=== PATIENT | female | born 1930 | race Caucasian/White ===

== ENCOUNTER 2019-03-04 22:29 | Observation (INO) | payer MEDICARE, OTHER ==
[2019-03-04 22:56] LABS: ADD MAN DIFF? NO
[2019-03-04 22:57] LABS: BASOPHILS % 0.3 % (0.0-2.0); EOSINOPHILS % 0.3 % (0.0-7.0); HEMATOCRIT 36.5 % (37.0-47.0); HEMOGLOBIN 11.7 g/dl (12.0-16.0); LYMPHOCYTES % 10.1 % (15.0-51.0); MEAN CORPUSCULAR HEMOGLOBIN 28.4 pg (29.0-33.0); MEAN CORPUSCULAR HGB CONC 32.1 g/dl (32.0-37.0); MEAN CORPUSCULAR VOLUME 88.6 fl (82.0-101.0); MEAN PLATELET VOLUME 9.8 fl (7.4-10.4); MONOCYTE # 0.4 10^3/ul (0.3-0.9); MONOCYTES % 3.7 % (0.0-11.0); NEUTROPHIL # 8.2 10^3/ul (1.6-7.5); NEUTROPHILS % 85.1 % (39.0-77.0); PLATELET COUNT 295 10^3/UL (140-415); RED BLOOD COUNT 4.12 10^6/ul (4.20-5.40); RED CELL DISTRIBUTION WIDTH 13.6 % (11.5-14.5)
[2019-03-04 22:57] LABS: WHITE BLOOD COUNT 9.7 10^3/ul (4.8-10.8)
[2019-03-04] MEDS: ONDANSETRON 4 MG INJ IV (23:23)
[2019-03-04 23:29] LABS: ALANINE AMINOTRANSFERASE 21 IU/L (13-69); ALBUMIN 4.7 g/dl (3.3-4.9); ALBUMIN/GLOBULIN RATIO 1.38; ALKALINE PHOSPHATASE 75 IU/L (42-121); ANION GAP 10 (5-13); ASPARTATE AMINO TRANSFERASE 32 IU/L (15-46); BILIRUBIN,INDIRECT 0.2 mg/dl (0-1.1); BILIRUBIN,TOTAL 0.2 mg/dl (0.2-1.3); BLOOD UREA NITROGEN 26 mg/dl (7-20); CALCIUM 9.6 mg/dl (8.4-10.2); CARBON DIOXIDE 29 mmol/L (21-31); CHLORIDE 101 mmol/L (97-110); GLUCOSE 73 mg/dl (70-220); LIPASE 153 U/L (23-300); POTASSIUM 3.6 mmol/L (3.5-5.1); SODIUM 140 mmol/L (135-144); TOTAL PROTEIN 8.1 g/dl (6.1-8.1)
[2019-03-04 23:41] LABS: TROPONIN-I < 0.012 ng/ml (0.000-0.120)
[2019-03-04 23:46] LABS: ADD UMIC YES; UR ASCORBIC ACID NEGATIVE (NEGATIVE); UR BILIRUBIN (Dip) NEGATIVE (NEGATIVE); UR BLOOD (Dip) NEGATIVE (NEGATIVE); UR CLARITY CLEAR (CLEAR); UR COLOR COLORLESS (YELLOW); UR GLUCOSE (Dip) NEGATIVE (NEGATIVE); UR KETONES (Dip) NEGATIVE (NEGATIVE); UR LEUKOCYTE ESTERASE (Dip) NEGATIVE Leu/ul (NEGATIVE); UR NITRITE (Dip) NEGATIVE (NEGATIVE); UR RBC 1 /HPF (0-5); UR SPECIFIC GRAVITY (Dip) 1.006 (1.003-1.030); UR TOTAL PROTEIN (Dip) 1+ mg/dl (NEGATIVE); UR UROBILINOGEN (Dip) NEGATIVE (NEGATIVE); UR WBC 1 /HPF (0-5)
[2019-03-04] MEDS: morphine 4 MG/ML VIAL IV (23:58)
[2019-03-04] MEDS: hydrALAzine 20 MG INJ IV (23:58)
[2019-03-05] MEDS ORDERED: LORAZEPAM 2 MG INJ (00:56)
[2019-03-05] MEDS: LORAZEPAM 2 MG INJ IV (01:00)
[2019-03-05] MEDS: ONDANSETRON 4 MG INJ IV (01:05)
[2019-03-05] MEDS ORDERED: NACL 0.9% 3 ML SYG IV (06:30)
[2019-03-05] MEDS ORDERED: ONDANSETRON 4 MG INJ IV (06:30)
[2019-03-05] MEDS ORDERED: ACETAMINOPHEN 325 MG TAB PO (06:30)
[2019-03-05] MEDS ORDERED: ALBUTEROL/IPRATROPIUM (NEB) 3 ML AMP HHN (06:30)
[2019-03-05] MEDS: SOD CHLORIDE 0.9% 1,000 ML IV (08:30)
[2019-03-05] MEDS: LEVOTHYROXINE 100 MCG TAB PO (08:30)
[2019-03-05] MEDS: PANTOPRAZOLE (EC) 40 MG TAB PO (08:30)
[2019-03-05] MEDS ORDERED: GLUCOSE GEL 15 GRAM TUBE PO ×2 (09:00)
[2019-03-05] MEDS ORDERED: GLUCOSE GEL 15 GRAM TUBE BUCCAL (09:00)
[2019-03-05] MEDS ORDERED: GLUCAGON 1 MG INJ IM (09:00)
[2019-03-05] MEDS ORDERED: DEXTROSE 50% 50 ML SYRINGE IV ×2 (09:00)
[2019-03-05] MEDS: INSULIN ASPART [NOVOLOG] 3 ML PEN SC ×3 (11:37→20:54)
[2019-03-05] MEDS: LISINOPRIL 10 MG TAB PO (16:10)
[2019-03-05] MEDS: POTASSIUM CHLORIDE 10 MEQ in SOD CHLORIDE 0.45% 1,000 ML IV (16:10)
[2019-03-05] MEDS: ACETAMINOPHEN 325 MG TAB PO (17:13)
[2019-03-05] MEDS: metFORMIN 500 MG TAB PO (17:15)
[2019-03-05] MEDS: INSULIN GLARGINE [LANTus] (100 UNITS/ML) SYG SC (21:00)
[2019-03-06] MEDS: ACCU-CHEK XX (02:44)
[2019-03-06] MEDS: LEVOTHYROXINE 100 MCG TAB PO (06:12)
[2019-03-06] MEDS: PANTOPRAZOLE (EC) 40 MG TAB PO (06:12)
[2019-03-06] MEDS: POTASSIUM CHLORIDE 10 MEQ in SOD CHLORIDE 0.45% 1,000 ML IV ×2 (06:12→18:48)
[2019-03-06] MEDS: ACETAMINOPHEN 325 MG TAB PO (06:21)
[2019-03-06] MEDS: INSULIN ASPART [NOVOLOG] 3 ML PEN SC ×4 (08:02→21:00)
[2019-03-06] MEDS: metFORMIN 500 MG TAB PO ×2 (08:06→17:41)
[2019-03-06] MEDS: LISINOPRIL 10 MG TAB PO (08:06)
[2019-03-06] MEDS: INSULIN GLARGINE [LANTus] (100 UNITS/ML) SYG SC ×2 (08:14→21:23)
[2019-03-06 08:21] LABS: ADD MAN DIFF? NO
[2019-03-06 08:30] LABS: BASOPHILS % 0.5 % (0.0-2.0); EOSINOPHILS # 0.2 10^3/ul (0.0-0.5); EOSINOPHILS % 2.1 % (0.0-7.0); HEMATOCRIT 33.4 % (37.0-47.0); HEMOGLOBIN 10.7 g/dl (12.0-16.0); LYMPHOCYTES % 25.9 % (15.0-51.0); MEAN CORPUSCULAR VOLUME 90.5 fl (82.0-101.0); MEAN PLATELET VOLUME 10.2 fl (7.4-10.4); MONOCYTE # 0.6 10^3/ul (0.3-0.9); MONOCYTES % 7.7 % (0.0-11.0); NEUTROPHIL # 4.9 10^3/ul (1.6-7.5); NEUTROPHILS % 63.3 % (39.0-77.0); PLATELET COUNT 313 10^3/UL (140-415); RED BLOOD COUNT 3.69 10^6/ul (4.20-5.40)
[2019-03-06 08:30] LABS: WHITE BLOOD COUNT 7.8 10^3/ul (4.8-10.8)
[2019-03-06 08:38] LABS: HEMOGLOBIN A1C 7.7 % (0-5.9)
[2019-03-06 08:55] LABS: ALANINE AMINOTRANSFERASE 13 IU/L (13-69); ALBUMIN 3.6 g/dl (3.3-4.9); ALBUMIN/GLOBULIN RATIO 1.28; ALKALINE PHOSPHATASE 51 IU/L (42-121); ANION GAP 7 (5-13); ASPARTATE AMINO TRANSFERASE 24 IU/L (15-46); BILIRUBIN,INDIRECT 0.5 mg/dl (0-1.1); BILIRUBIN,TOTAL 0.5 mg/dl (0.2-1.3); BLOOD UREA NITROGEN 26 mg/dl (7-20); CALCIUM 8.8 mg/dl (8.4-10.2); CARBON DIOXIDE 28 mmol/L (21-31); CHLORIDE 102 mmol/L (97-110); CREATININE 1.21 mg/dl (0.44-1.00); GLUCOSE 246 mg/dl (70-220); MAGNESIUM 1.7 mg/dl (1.7-2.5); SODIUM 137 mmol/L (135-144); TOTAL PROTEIN 6.4 g/dl (6.1-8.1)
[2019-03-06] MEDS: LISINOPRIL 20 MG TAB PO ×2 (14:52→19:47)
[2019-03-06] MEDS: ONDANSETRON 4 MG INJ IV (19:50)
[2019-03-07] MEDS: POTASSIUM CHLORIDE 10 MEQ in SOD CHLORIDE 0.45% 1,000 ML IV ×2 (00:53→08:12)
[2019-03-07] MEDS: ACCU-CHEK XX (02:00)
[2019-03-07] MEDS: LEVOTHYROXINE 100 MCG TAB PO (06:06)
[2019-03-07] MEDS: PANTOPRAZOLE (EC) 40 MG TAB PO (06:06)
[2019-03-07] MEDS: INSULIN ASPART [NOVOLOG] 3 ML PEN SC ×3 (07:55→16:59)
[2019-03-07] MEDS: metFORMIN 500 MG TAB PO ×2 (08:20→17:00)
[2019-03-07] MEDS: LISINOPRIL 20 MG TAB PO (08:21)
[2019-03-07] MEDS: INSULIN GLARGINE [LANTus] (100 UNITS/ML) SYG SC (08:23)
[2019-03-07] MEDS ORDERED: LISINOPRIL 10 MG TAB PO (09:00)
[2019-03-07] MEDS: BISACODYL (EC) 5 MG TAB PO (14:40)
[2019-03-07] MEDS: ALPRAZOLAM 0.25 MG TAB PO (15:19)
== END 2019-03-07 19:22 | disposition home or self-care (01) ==
LOC: E/R 22:29 → TEL 03-05 01:58
DX: K52.9 Noninfective gastroenteritis and colitis, unspecified (principal); I16.1 Hypertensive emergency; I10 Essential (primary) hypertension; E86.0 Dehydration; E10.9 Type 1 diabetes mellitus without complications; Z79.4 Long term (current) use of insulin; E03.9 Hypothyroidism, unspecified; E27.9 Disorder of adrenal gland, unspecified
CPT/HCPCS: 36415; 70450; 71045; 74176; 80053; 81001; 82962; 83036; 83690; 83735; 84484; 85025; 93005; 96374; 96375; 96376; 99285-25; G0378